=== PATIENT | female | born 1965 | race Caucasian/White ===

== ENCOUNTER 2023-09-15 10:48 | Emergency (ER) | payer OTHER, SELFPAY ==
[2023-09-15 10:56] VITALS: BP 104/66; PULSE 83; RESP 18; TEMP 36.5; O2SAT 98
--- NOTE | 2023-09-15 10:56 | ED.URI ---
HPI - URI/Sore Throat General Chief Complaint: Upper Respiratory Infection Stated Complaint: sinus/upper respiratory Time Seen by Provider: 09/15/23 10:55 Source: patient, RN notes reviewed and old records reviewed Mode of arrival: ambulatory Limitations: no limitations History of Present Illness HPI Narrative: 58 year old female who present to express care with complaints of sinus congestion and drainage with sinus pressure, fevers,cough feels like she can't take a deep breath,and body aches for the past 3 days. Patient reports that her temperature has been running around a 100F and she has taken Tylenol last dose about 2 hours prior to arrival, Patient reports history of COPD and continues to smoke 5 cigarettes daily, does have inhaler at home and has been using her inhaler as prescribed. Patient has also been taking Tylenol for her fever and discomfort. MD elicited complaint: cough and sore throat Pertinent past history: COPD and other (tobacco use) Onset (ago): day(s) (3 days) Severity: moderate Able to tolerate fluids by mouth: Yes Associated symptoms: fever, chills, myalgias, cough and shortness of breath Treatments prior to arrival: acetaminophen and other (Albuterol inhaler) Related Data Home Medications Medication Instructions Recorded Confirmed albuterol sulfate 90 mcg/actuation 2 puff inhalation PRN PRN 09/15/23 09/15/23 aerosol inhaler Shortness Of Breath atorvastatin 20 mg tablet 20 mg PO DAILY 09/15/23 09/15/23 losartan 25 mg tablet 25 mg PO BID 09/15/23 09/15/23 omeprazole 40 mg capsule,delayed 40 mg PO DAILY 09/15/23 09/15/23 release Allergies Allergy/AdvReac Type Severity Reaction Status Date / Time No Known Allergies Allergy Verified 09/15/23 11:00 Review of Systems Review of Systems: CONSTITUTIONAL: Reports malaise, chills, sweats, or fever. EYES: Denies visual changes, redness, or discharge. ENT: Reports rhinorrhea, congestion, sinus pain,bilateral otalgia and sore throat. CARDIOVASCULAR: Denies chest pain, palpitations, or edema. RESPIRATORY: Reports cough.? dyspnea with cough GASTROINTESTINAL: Denies abdominal pain, nausea, vomiting, diarrhea SKIN: Denies rash or itching. MUSCULOSKELETAL: Positive for myalgia. NEUROLOGIC: Denies headache. All systems reviewed & are unremarkable except as noted in HPI and below PMFSH Past Medical History Medical History (Updated 09/15/23 @ 11:29 by Garima Toledo NP) COPD (chronic obstructive pulmonary disease) Elevated cholesterol GERD (gastroesophageal reflux disease) Hypertension Migraine Social History Social History (Updated 09/15/23 @ 11:25 by Garima Toledo NP) Smoking status: Current every day smoker Tobacco type: cigarettes Living arrangements: with family Gender identity (if verbalized by the patient): Female Comments At time of signature, agree with nursing past medical, surgical, social and family history. There is no relevant family history pertinent to the presenting complaint Exam Narrative: GENERAL: Well-appearing, well-nourished, and in no acute distress. HEAD: Normocephalic EYES: PERRLA, conjunctivae clear ENT: Nares clear, turbinates edematous and erythematous, clear discharge. Mucous membranes moist. TM pearly [place] with dull light reflex bilaterally; no tragal tenderness. Oropharynx erythematous without lesions. Tonsils not enlarged and without exudate, no drooling, no hoarseness, no trismus, uvula midline. NECK: Supple. No lymphadenopathy CHEST: scattered wheezes upper lobes, breath sounds equal.upper lobes wheezing, no rhonchi, rales, or stridor. No respiratory distress, speaks in full sentences.cough productive at times, SAO2 98% no tachypnea or accessory muscle use HEART: Regular rate and rhythm. No murmur heard. SKIN: Warm, dry, no rash. NEURO: Alert and oriented x3. PSYCH: Normal mood and affect Course Course Emergency Course: Patient is aware of diagnosis,
[2023-09-15 11:02] VITALS: BP 104/66; PULSE 83; RESP 18; TEMP 36.5; O2SAT 98
== END 2023-09-15 11:32 | disposition home or self-care (01) ==
PROVIDERS: Emergency Provider Registered Nurse
DX: U07.1 COVID-19 (principal); J44.9 Chronic obstructive pulmonary disease, unspecified; E78.00 Pure hypercholesterolemia, unspecified; K21.9 Gastro-esophageal reflux disease without esophagitis; I10 Essential (primary) hypertension; F17.210 Nicotine dependence, cigarettes, uncomplicated
CPT/HCPCS: 87426; 87804; 99213; G0463